=== PATIENT | female | born 1970 | race Caucasian/White ===

== ENCOUNTER → 2024-07-19 15:41 | Outpatient (REF) | payer BC, SELFPAY | LOC: WDC 15:41 | PROVIDERS: ATTENDING PHYSICIAN Obstetrics & Gynecology Gynecology; FAMILY PHYSICIAN Physician Assistant Medical | DX: Z12.31 Encounter for screening mammogram for malignant neoplasm of breast (principal) | CPT/HCPCS: 77063; 77067 ==

== ENCOUNTER → 2025-05-23 11:32 | Outpatient (REF) | payer BC, SELFPAY | LOC: RAD 11:32 | PROVIDERS: ATTENDING PHYSICIAN Physician Assistant Medical | DX: M25.50 Pain in unspecified joint (principal); M25.551 Pain in right hip; M25.552 Pain in left hip; Z87.768 Personal history of other specified (corrected) congenital malformations of integument, limbs and musculoskeletal system | CPT/HCPCS: 73523 ==